=== PATIENT | female | born 1980 | race Caucasian/White ===

== ENCOUNTER 2020-12-02 17:37 | Emergency (ER) | payer OTHER ==
[~2020-12-02] VITALS: Ht 170.2 cm; Wt 81.7 kg
[~2020-12-02 17:37] MED LIST: TRINATE TABLET1 TAB PO
[2020-12-02 17:40] VITALS: BP 134/81
[2020-12-02] MEDS ORDERED: PREDNISONE 20 M20 MG PO (18:39)
[2020-12-02] MEDS ORDERED: ACID REDUCER20 MG PO (18:39)
== END 2020-12-02 18:42 | disposition home or self-care (01) ==
LOC: ER 17:37
DX: T78.40XA Allergy, unspecified, initial encounter (principal); Z90.49 Acquired absence of other specified parts of digestive tract; Z87.891 Personal history of nicotine dependence; Z79.899 Other long term (current) drug therapy; Z88.8 Allergy status to other drugs, medicaments and biological substances; Y92.89 Other specified places as the place of occurrence of the external cause